=== PATIENT | female | born 2000 | race Caucasian/White ===

== ENCOUNTER 2022-08-30 21:54 | Emergency (ER) | payer OTHER ==
[2022-08-30] MEDS ORDERED: methylPREDNISolone Sod Succ/PF 125 MG/2 ML VIAL ONE (22:22)
[2022-08-30] MEDS ORDERED: diphenhydrAMINE 50 MG/ML VIAL ONE (22:22)
[2022-08-30] MEDS ORDERED: Famotidine/PF 20 mg/2ml Vial ONE (22:22)
[2022-08-30] MEDS ORDERED: EPINEPHrine 1 MG/ML AMP ONE (22:33)
[2022-08-30] MEDS ORDERED: Ipratropium/Albuterol 3 ML NEB ONE (22:39)
== END 2022-08-31 02:12 | disposition home or self-care (01) ==
LOC: CSHERS 21:54
DX: T78.05XA Anaphylactic reaction due to tree nuts and seeds, initial encounter (principal)
CPT/HCPCS: 94640; 94760; 96361; 96372; 96374; 96375; J0171; J1200; J2930; J7620; S0028